=== PATIENT | female | born 1995 | race Caucasian/White ===

== ENCOUNTER 2021-06-28 01:33 | Outpatient (CLI) | payer MEDICAID ==
[~2021-06-28] VITALS: Ht 160 cm; Wt 84.5 kg
[~2021-06-28 01:33] MED LIST: NO HOME MEDICATIONS
--- NOTE | 2021-06-28 01:45 | NUR ---
0145-, 36.6 weeks gestation, comes onto unit via w/c. Oriented to LDR4. Instructed to change into gown. EFM explained and applied. VS obtained. Patient reports feeling ctx q 8-10 mins since 2229. Patient states "felt some drops of fluid and had brown discharge." Denies VB or decreased movement. SVE 0/50/-3. Amniotest negative for SROM. Assessments completed. Plan of care discussed.
[2021-06-28] MEDS ORDERED: PRENATAL TABLET PO (02:02)
[2021-06-28] MEDS ORDERED: ASPIRIN 81M81 MG/TA2 PO (02:03)
[2021-06-28] MEDS ORDERED: SLOW FE142 MG PO (02:03)
[2021-06-28 02:30] VITALS: BP 116/78; PULSE 100; TEMP 98.5
[2021-06-28 02:55] VITALS: BP 126/71; PULSE 87
== END 2021-06-28 03:09 ==
LOC: LDRO 01:33
DX: O47.03 False labor before 37 completed weeks of gestation, third trimester (principal); Z3A.36 36 weeks gestation of pregnancy

== ENCOUNTER 2021-07-10 09:10 | Inpatient (IN) | payer MEDICAID ==
[~2021-07-10] VITALS: Ht 158.8 cm; Wt 85.0 kg
[~2021-07-10 09:10] MED LIST changes: +ASPIRIN 81M81 MG/TA2 PO; +PRENATAL TABLET PO; +SLOW FE142 MG PO
[2021-07-13] VITALS (18 sets, daily range): BP systolic 94–136; BP diastolic 49–89; PULSE 83–112; TEMP 97.6–98.1
[2021-07-13 07:13] LABS: BASO % 0.2 % (0.0-2.0); EOS # 0.1 K/mm3 (0.0-0.7); EOS % 0.7 % (0.0-4.0); GRAN # 7.9 K/mm3 (1.4-6.5); GRAN % 63.5 % (42.2-75.2); HEMOGLOBIN 11.4 g/dl (12.5-16.0); LYMPH # 3.5 K/mm3 (1.2-3.4); LYMPH % 27.6 % (20.0-51.0); MEAN CELL VOLUME 82 fl (80.0-100.0); MEAN CORPUSCULAR HEMOGLOBIN 27 pg (27-31); MEAN CORPUSCULAR HGB CONC 33 g/dl (33.0-37.0); MEAN PLATELET VOLUME 11.8 fl (7.4-10.4); MONO # 0.9 K/mm3 (0.1-0.6); MONO % 7.1 % (1.7-9.3); PLATELET COUNT 268 K/mm3 (130-400); RED BLOOD COUNT 4.23 M/mm3 (4.10-5.30); REDCELL DISTRIBUTION WIDTH-CV 15.4 % (11.5-14.5)
[2021-07-13 07:14] LABS: HEMATOCRIT 34.8 % (37.0-47.0)
[2021-07-14 00:20] VITALS: BP 117/79; PULSE 87; TEMP 98
[2021-07-14 04:10] VITALS: BP 122/79; PULSE 84; TEMP 97.9
[2021-07-14 07:30] VITALS: BP 119/70; PULSE 77; TEMP 98.2
[2021-07-14] MEDS ORDERED: IBU600 MG PO (08:47)
[2021-07-14] MEDS ORDERED: ROXICODONE 55 MG/TAB PO (08:49)
--- NOTE | 2021-07-14 10:36 | NUR ---
Initial visit; Patient and her mother thanked [employer] for visiting and [place] their baby girl. [employer] thanked family for choosing [facility].
[2021-07-14 16:48] VITALS: BP 127/74; PULSE 79; TEMP 98.4
[2021-07-14 20:10] VITALS: BP 119/75; PULSE 82; TEMP 98
[2021-07-15 09:15] VITALS: BP 122/93; PULSE 83; TEMP 98.2
== END 2021-07-15 11:50 | disposition home or self-care (01) | DRG 788 ==
LOC: OB 07-13 05:15 → LDR 07-13 09:09 → OB 07-15 11:50
PROVIDERS: ADMIT Obstetrics & Gynecology
PROC: 10D00Z1 Extraction of Products of Conception, Low, Open Approach (ICD-10-PCS; principal; 2021-07-13)
PROC: 0HB7XZZ Excision of Abdomen Skin, External Approach (ICD-10-PCS; 2021-07-13)
DX: O34.211 Maternal care for low transverse scar from previous cesarean delivery (principal); O99.02 Anemia complicating childbirth; D64.9 Anemia, unspecified; O34.22 Maternal care for cesarean scar defect (isthmocele); L91.0 Hypertrophic scar; O43.893 Other placental disorders, third trimester; Z3A.39 39 weeks gestation of pregnancy; Z37.0 Single live birth; Z86.16 Personal history of COVID-19
CPT/HCPCS: J0690; J1100; J1885; J2370; J2405; J2590; J2765; J7120